=== PATIENT | male | born 1980 | race Caucasian/White ===

== ENCOUNTER 2020-10-16 20:37 | Emergency (ER) | payer BC, OTHER ==
[2020-10-16 21:26] LABS: Protime INR 0.97
--- NOTE | 2020-10-16 21:31 | RAD REPORT ---
EXAM DESCRIPTION: RAD - Chest Single View - 10/16/2020 9:21 pm CLINICAL HISTORY: Dizziness Chest pain. COMPARISON: No comparisons FINDINGS: Portable technique limits examination quality. The lungs are grossly clear. The heart is normal in size. No displaced fractures. IMPRESSION: No acute intrathoracic process suspected.
[2020-10-16 21:47] LABS: Absolute Lymphocytes (CBC) 2.2 K/uL (0.7-4.9); Basophils % 0.3 % (0-1.3); Hematocrit 43.4 % (39.6-49.0); Lymphocytes % 46.2 % (15.3-44.8); MPV 9.1 fL (7.6-11.3)
[2020-10-16 21:49] LABS: ALT/SGPT 42 U/L (12-78); AST/SGOT 20 U/L (15-37); Albumin 3.7 g/dL (3.4-5.0); Alkaline Phosphatase 83 U/L (45-117); BUN Blood Urea Nitrogen 15 mg/dL (7-18); Bicarbonate 28 mmol/L (21-32); Bilirubin Direct 0.1 mg/dL (0-0.2); Bilirubin Total 0.3 mg/dL (0.2-1.0); Glucose Level 107 mg/dL (74-106); Magnesium 2.3 mg/dL (1.8-2.4); NT PRO-BNP 21 pg/mL (<125); Potassium 3.4 mmol/L (3.5-5.1); Protein, Total 7.5 g/dL (6.4-8.2); Sodium Level 144 mmol/L (136-145); Troponin (Emerg Dept Use Only) < 0.02 ng/mL (0.0-0.045)
[2020-10-16 22:01] LABS: Urine Blood TRACE (NEG); Urine Glucose NEGATIVE (NEG); Urine Protein NEGATIVE (NEG); Urine Specific Gravity 1.025 (1.005-1.030); Urine pH 6.5 (5.0-7.0)
[2020-10-16 22:25] LABS: Barbiturates NEGATIVE (NEGATIVE); Benzodiazepines NEGATIVE (NEGATIVE); Cocaine NEGATIVE (NEGATIVE); METHAMPHETAM NEGATIVE (NEGATIVE); Methadone NEGATIVE (NEGATIVE); Opiates NEGATIVE (NEGATIVE); Phencyclidine NEGATIVE (NEGATIVE); THC Cannibis NEGATIVE (NEGATIVE)
[2020-10-16] MEDS ORDERED: MECLIZINE HCL 12.5 MG TAB ONE (23:34)
--- NOTE | 2020-10-16 23:43 | ER ---
Nurse's Notes [facility] [place] Name: Eduardo Parks Age: 40 yrs Sex: Male : 1980 Arrival Date: 10/16/2020 Time: 20:40 Bed 18 Private MD: Diagnosis: Vertigo Presentation: 10/16 20:45 Acuity: PADMA 3 sg 20:45 Chief complaint: Patient states: Reports positive covid, 14 days ago, states having sg dizziness today, states is on augmentin for upper resp infection and sinus infection. Coronavirus screen: Client denies travel out of the [place] in the last 14 days. At this time, the client does not indicate any symptoms associated with coronavirus-19. Ebola Screen: Patient negative for fever greater than or equal to 101.5 degrees Fahrenheit, and additional compatible Ebola Virus Disease symptoms Patient denies exposure to infectious person. Patient denies travel to an Ebola-affected area in the 21 days before illness onset. No symptoms or risks identified at this time. Initial Sepsis Screen: Does the patient meet any 2 criteria? No. Patient's initial sepsis screen is negative. Does the patient have a suspected source of infection? Yes: Productive cough/pneumonia. Risk Assessment: Do you want to hurt yourself or someone else? Patient reports no desire to harm self or others. Onset of symptoms was October 16, 2020. Care prior to arrival: None. Transition of care: patient was not received from another setting of care. 20:45 Method Of Arrival: Ambulatory sg Historical: - Allergies: 20:58 No Known Allergies; sg - Home Meds: 20:58 BP Medication [Active]; sg - PMHx: 20:58 Hypertension; sg - Immunization history:: Adult Immunizations up to date. - Social history:: Smoking status: Patient denies any tobacco usage or history of. Screenin:47 Abuse screen: Denies threats or abuse. Denies injuries from another. Nutritional lp1 screening: No deficits noted. Tuberculosis screening: No symptoms or risk factors identified. Fall Risk None identified. Assessment: 21:40 General: Appears in no apparent distress. Behavior is calm, cooperative, appropriate lp1 for age. Pain: Complains of pain in chest Pain currently is 0 out of 10 on a pain scale. Quality of pain is described as pressure, Pain began gradually, Is intermittent. Neuro: Level of Consciousness is awake, alert, obeys commands, Oriented to person, place, time, situation, Reports dizziness, intermittent, on exertion. Cardiovascular: Denies chest pain, Patient's skin is warm and dry. Rhythm is sinus rhythm. Respiratory: Airway is patent Respiratory effort is even, unlabored, Respiratory pattern is regular, Breath sounds are clear bilaterally. GI: Abdomen is non-distended. : No signs and/or symptoms were reported regarding the genitourinary system. EENT: No signs and/or symptoms were reported regarding the EENT system. Derm: Skin is intact, Skin is dry, Skin is normal. Musculoskeletal: No deficits noted. 22:15 Reassessment: Patient is alert, oriented x 3, equal unlabored respirations, skin lp1 warm/dry/pink. Patient returned from CT, no apparent distress. 23:36 Reassessment: Dr. Rinaldi at bedside to discuss results with patient and . lp1 23:44 Reassessment: Patient appears in no apparent distress at this time. Patient is alert, lp1 oriented x 3, equal unlabored respirations, skin warm/dry/pink. Patient states feeling better. Patient states symptoms have improved. Reassessment: Patient ambulating around [place], no complaint of dizziness. General: Appears in no apparent distress. Behavior is calm. Vital Signs: 20:45 Pulse 87; Resp 16; Pulse Ox 99% on R/A; Weight 136.98 kg (R); Height 6 ft. 3 in. sg (190.50 cm); Pain 4/10; 21:00 BP 144 / 87; Pulse 89; Resp 18; Pulse Ox 98% ; lp1 22:00 BP 133 / 77; Pulse 72; Resp 17; Pulse Ox 97% on R/A; lp1 23:00 Temp 98.6(O); lp1 23:50 BP 128 / 79; Pulse 62; Resp 17; Pulse Ox 99% on R/A; Pain 0/10; lp1 20:45 Body Mass Index 37.75 (136.98 kg, 190.50 cm) ED Course: 20:40 Patient arrived in ED. bp1 20:45 Triage completed. sg 20:45 Arm band placed on. sg 20:46 Armando Rinaldi MD is Attending Physician. [facility] 20:54 Lola Arias, RN is Primary Nurse. lp1 21:10 Initial lab(s) drawn, by me, sent to lab. Inserted saline lock: 20 gauge in right ca1 antecubital area, using aseptic technique. Blood collected. 21:22 XRAY Chest (1 view) In Process Unspecified. EDMS 21:47 Patient has correct armband on for positive identification. Bed in low position. Call lp1 light in reach. school bus monitor on. Pulse ox on. NIBP on. 22:22 CT Head Brain wo Cont In Process Unspecified. EDMS 23:42 Meghna Frederick MD is Referral Physician. [facility] 23:44 No provider procedures requiring assistance completed. IV discontinued, No lp1 redness/swelling at site. Pressure dressing applied. Administered Medications: 23:20 Drug: Meclizine 25 mg Route: PO; lp1 23:50 Follow up: Response: No adverse reaction lp1 Outcome: 23:42 Discharge ordered by . 7 23:55 Discharged to home ambulatory, with significant other. lp1 23:55 Condition: good 23:55 Discharge instructions given to patient, Instructed on discharge instructions, follow up and referral plans. medication usage, Demonstrated understanding of instructions, follow-up care, medications, Prescriptions given X 1. 10/17 00:10 Patient left the ED. sg Signatures: Dispatcher [employer] EDIL Zeus Kate RN RN Lola Arias, RN RN 1 Kellie Sigala RN RN [facility] Katelyn Wise Maurice, MD MD 7 Corrections: (The following items were deleted from the chart) 10/16 22:09 22:08 BP 133 / 77; Pulse 72bpm; Resp 17bpm; Pulse Ox 97% RA; lp1 lp1
--- NOTE | 2020-10-16 23:43 | EDPHYS ---
Physician Documentation [facility] Name: Eduardo Parks Age: 40 yrs Sex: Male : 1980 Arrival Date: 10/16/2020 Time: 20:40 Bed 18 Private MD: ED Physician Armando Rinaldi HPI: 10/16 21:05 This 40 yrs old Male presents to ER via Ambulatory with complaints of mh7 Dizziness, Sweating, Anxiety. 21:05 The patient presents with dizziness, sense of spinning. Onset: The symptoms/episode mh7 began/occurred today. Context: occurred at home, occurred while the patient was standing, just prior to the episode the patient experienced diaphoresis, nausea. Modifying factors: The symptoms are alleviated by holding head still, the symptoms are aggravated by movement of head, changing position. Associated signs and symptoms: Pertinent positives: diaphoresis, nausea, Pertinent negatives: abdominal pain, agitation, ataxia, blurred vision, chest pain, combativeness, confusion, focal weakness, head injury, headache, near-syncope, numbness, palpitations, seizure, shortness of breath, syncope, tingling, vomiting. Severity of symptoms: At their worst the symptoms were moderate today, in the emergency department the symptoms have improved moderately. The patient has experienced similar episodes in the past, multiple times. Historical: - Allergies: 20:58 No Known Allergies; sg - Home Meds: 20:58 BP Medication [Active]; sg - PMHx: 20:58 Hypertension; sg - Immunization history:: Adult Immunizations up to date. - Social history:: Smoking status: Patient denies any tobacco usage or history of. ROS: 21:05 Constitutional: Negative for fever, chills, and weight loss, Eyes: Negative for injury, mh7 pain, redness, and discharge, ENT: Negative for injury, pain, and discharge, Neck: Negative for injury, pain, and swelling, Cardiovascular: Negative for chest pain, palpitations, and edema, Respiratory: Negative for shortness of breath, cough, wheezing, and pleuritic chest pain, Abdomen/GI: Negative for abdominal pain, nausea, vomiting, diarrhea, and constipation, Back: Negative for injury and pain, : Negative for injury, bleeding, discharge, and swelling, MS/Extremity: Negative for injury and deformity, Skin: Negative for injury, rash, and discoloration. 21:05 Neuro: Negative for headache, weakness, numbness, tingling, and seizure. 21:05 Allergy/Immunology: Negative for hives, rash, and allergies, Endocrine: Negative for neck swelling, polydipsia, polyuria, polyphagia, and marked weight changes, Hematologic/Lymphatic: Negative for swollen nodes, abnormal bleeding, and unusual bruising. 21:05 Neuro: 21:05 Psych: Positive for anxiety. Exam: 21:05 Head/Face: Normocephalic, atraumatic. Eyes: Pupils equal round and reactive to light, mh7 extra-ocular motions intact. Lids and lashes normal. Conjunctiva and sclera are non-icteric and not injected. Cornea within normal limits. Periorbital areas with no swelling, redness, or edema. Neck: Trachea midline, no thyromegaly or masses palpated, and no cervical lymphadenopathy. Supple, full range of motion without nuchal rigidity, or vertebral point tenderness. No Meningismus. Chest/axilla: Normal chest wall appearance and motion. Nontender with no deformity. No lesions are appreciated. Cardiovascular: Regular rate and rhythm with a normal S1 and S2. No gallops, murmurs, or rubs. Normal PMI, no JVD. No pulse deficits. Respiratory: Lungs have equal breath sounds bilaterally, clear to auscultation and percussion. No rales, rhonchi or wheezes noted. No increased work of breathing, no retractions or nasal flaring. Abdomen/GI: Soft, non-tender, with normal bowel sounds. No distension or tympany. No guarding or rebound. No evidence of tenderness throughout. Back: No spinal tenderness. No costovertebral tenderness. Full range of motion. Skin: Warm, dry with normal turgor. Normal color with no rashes, no lesions, and no evidence of cellulitis. MS/ Extremity: Pulses equal, no cyanosis. Neurovascular intact. Full, normal range of motion. Neuro: Awake and alert, GCS 15, oriented to person, place, time, and situation. Cranial nerves II-XII grossly intact. Motor strength 5/5 in all extremities. Sensory grossly intact. Cerebellar exam normal. Normal gait. Psych: Awake, alert, with orientation to person, place and time. Behavior, mood, and affect are within normal limits. 21:05 Constitutional: The patient appears in no acute distress, alert, awake, anxious. Vital Signs: 20:45 Pulse 87; Resp 16; Pulse Ox 99% on R/A; Weight 136.98 kg (R); Height 6 ft. 3 in. sg (190.50 cm); Pain 4/10; 21:00 BP 144 / 87; Pulse 89; Resp 18; Pulse Ox 98% ; lp1 22:00 BP 133 / 77; Pulse 72; Resp 17; Pulse Ox 97% on R/A; lp1 23:00 Temp 98.6(O); lp1 23:50 BP 128 / 79; Pulse 62; Resp 17; Pulse Ox 99% on R/A; Pain 0/10; lp1 20:45 Body Mass Index 37.75 (136.98 kg, 190.50 cm) sg MDM: 23:40 Differential diagnosis: cardiac arrhythmia, generalized weakness, hypovolemia, mh7 idiopathic dizziness, near-syncope, vertigo. Data reviewed: vital signs, nurses notes, lab test result(s), cardiac enzymes, CBC, drug level(s), electrolytes, urinalysis, EKG, radiologic studies, CT scan, plain films. Data interpreted: Pulse oximetry: on room air is 97 %. Interpretation: normal. Counseling: I had a detailed discussion with the patient and/or guardian regarding: the historical points, exam findings, and any diagnostic results supporting the discharge/admit diagnosis, lab results, radiology results, the need for outpatient follow up, to return to the emergency department if symptoms worsen or persist or if there are any questions or concerns that arise at home. Response to treatment: the patient's symptoms have resolved after treatment, the patient's blood pressure is in an acceptable range, mental status has returned to baseline, the patient no longer shows bradycardia, the patient is not short of breath, the patient is not tachycardic, the patient's pain is gone, the patient's temperature has normalized. 23:42 Patient medically screened. [facility] 10/16 21:04 Order name: Basic Metabolic Panel [facility] 10/16 21:04 Order name: CBC with Diff; Complete Time: 22:05 [facility] 10/16 21:04 Order name: LFT's [facility] 10/16 21:04 Order name: Magnesium [facility] 10/16 21:04 Order name: NT PRO-BNP; Complete Time: 22:05 [facility] 10/16 21:04 Order name: PT-INR; Complete Time: 22:05 [facility] 10/16 21:04 Order name: Troponin (emerg Dept Use Only); Complete Time: 22:05 [facility] 10/16 21:04 Order name: XRAY Chest (1 view); Complete Time: 22:05 [facility] 10/16 21:04 Order name: UDS; Complete Time: 22:27 [facility] 10/16 21:04 Order name: ETOH Level; Complete Time: 22:05 [facility] 10/16 21:04 Order name: Basic Metabolic Panel; Complete Time: 22:05 [facility] 10/16 21:04 Order name: Liver (Hepatic) Function; Complete Time: 22:05 [facility] 10/16 21:04 Order name: Magnesium; Complete Time: 22:05 [facility] 10/16 21:57 Order name: Urine Dipstick--Ancillary (enter results); Complete Time: 22:05 [facility] 10/16 21:04 Order name: EKG; Complete Time: 21:05 [facility] 10/16 21:04 Order name: Cardiac monitoring; Complete Time: 21:46 [facility] 10/16 21:04 Order name: EKG - Nurse/Tech; Complete Time: 21:46 [facility] 10/16 21:04 Order name: IV Saline Lock; Complete Time: 21:19 [facility] 10/16 21:04 Order name: Labs collected and sent; Complete Time: 21:19 [facility] 10/16 21:04 Order name: O2 Per Protocol; Complete Time: 21:19 [facility] 10/16 21:04 Order name: O2 Sat Monitoring; Complete Time: 21:19 [facility] 10/16 21:04 Order name: Urine Dipstick-Ancillary (obtain specimen); Complete Time: 21:56 [facility] 10/16 21:04 Order name: CT Head Brain wo Cont 7 Administered Medications: 23:20 Drug: Meclizine 25 mg Route: PO; lp1 23:50 Follow up: Response: No adverse reaction lp1 Disposition: 10/16/20 23:42 Discharged to Home. Impression: Vertigo. - Condition is Stable. - Discharge Instructions: Vertigo, [id number]. - Prescriptions for Meclizine 25 mg Oral Tablet - take 1 tablet by ORAL route every 8 hours As needed; 20 tablet. - Medication Reconciliation Form, Thank You Letter, Antibiotic Education, Prescription Opioid Use form. - Follow up: Private Physician; When: 1 - 2 days; Reason: If symptoms return, Worsening of condition, Recheck today's complaints, Continuance of care, Re-evaluation by your physician. Follow up: Meghna Frederick MD; When: 1 - 2 days; Reason: Worsening of condition, Recheck today's complaints. - Problem is an acute exacerbation. - Symptoms have improved. Signatures: Dispatcher [employer] EDMS Zeus Kate RN RN sg Lola Arias RN RN lp1 Armando Rinaldi MD MD mh7 Corrections: (The following items were deleted from the chart) 10/17 00:10 10/16 23:42 10/16/2020 23:42 Discharged to Home. Impression: Vertigo. Condition is sg Stable. Forms are Medication Reconciliation Form, Thank You Letter, Antibiotic Education, Prescription Opioid Use. Follow up: Private Physician; When: 1 - 2 days; Reason: If symptoms return, Worsening of condition, Recheck today's complaints, Continuance of care, Re-evaluation by your physician. Follow up: Meghna Frederick; When: 1 - 2 days; Reason: Worsening of condition, Recheck today's complaints. Problem is an acute exacerbation. Symptoms have improved. mh7
[2020-10-17 04:04] VITALS: BP 133/77; O2SAT 97
[2020-10-17 04:05] VITALS: TEMP 98.6
--- NOTE | 2020-10-18 10:41 | RAD REPORT ---
EXAM DESCRIPTION: CT - Head Brain Wo Cont - 10/17/2020 4:02 am CLINICAL HISTORY: 40 years Male DIZZINESS COMPARISON: None TECHNIQUE: Contiguous axial images of the brain were obtained without the administration of intraven ous contrast.This exam was performed according to our departmental dose-optimization program which in cludes use of Automated Exposure Control, adjustment of the mA and/or kV according to patient size an d/or use of iterative reconstruction technique. DLP: 906 mGy*cm FINDINGS: Brain: No acute intracranial hemorrhage. No extra-axial collection. No mass effect or sydni iation. Ventricles: Within normal limits in size. Globes and orbits: No acute abnormality. Bones: No acute osseous finding Paranasal sinuses: Nodular maxillary an ethmoid mucosal thickening. No air-fluid level. Mastoid air cells: Well pneumatized. Soft tissues: Within normal limits IMPRESSION: No acute intracranial abnormality. Electronically signed by: Neal Myers DO 10/16/2020 10:32 PM [employer] Due to temporary technical issues with the PACS/Fluency reporting system, reports are being signed by the in house radiologist without review as a courtesy to ensure prompt reporting. The interpreting r adiologist is fully responsible for the content of the report.
== END 2020-10-17 00:10 | disposition home or self-care (01) ==
LOC: ER 20:37
DX: R42 Dizziness and giddiness (principal); I10 Essential (primary) hypertension; Z86.19 Personal history of other infectious and parasitic diseases
CPT/HCPCS: 36415; 70450; 71045; 80048; 80076; 80307; 80320; 81003; 83735; 83880; 84484; 85025; 85610; 93005; 99284

== ENCOUNTER 2023-12-25 07:48 | Observation (INO) | payer OTHER, SELFPAY ==
[2023-12-25] MEDS ORDERED: MAGNESIUM SULFATE 1 gm IVPB 1 GM/100 ML BAG IV ONE (07:56)
[2023-12-25] MEDS ORDERED: NA CHLORIDE 0.9% 1,000 ML ONE (07:56)
[2023-12-25] MEDS ORDERED: ASPIRIN 81 MG CHEWABLE TABLET ONE (07:56)
[2023-12-25] MEDS: METOPROLOL XL 25 MG TAB PO ONE (07:58)
[2023-12-25] MEDS ORDERED: METOPROLOL TARTRATE 5 MG/5 ML INJ IV ONE (08:15)
[2023-12-25] MEDS ORDERED: ENOXAPARIN 100 MG/ML SYR SQ ONE (08:15)
[2023-12-25 08:19] LABS: Absolute Lymphocytes (CBC) 2.8 K/uL (0.7-4.9); Hematocrit 44.3 % (39.6-49.0); Lymphocytes % 44.6 % (15.3-44.8); MPV 8.4 fL (7.6-11.3); Platelets 240 thou/uL (152-406); RBC Red Blood Cell Count 4.87 M/uL (4.33-5.43)
--- NOTE | 2023-12-25 08:25 | EDPHYS ---
Physician Documentation [facility] Name: Eduardo Parks Age: 43 yrs Sex: Male : 1980 Arrival Date: 12/25/2023 Time: 07:48 Bed 5 Private MD: Xander Day V ED Physician Min Adams HPI: 12/25 08:20 This 43 yrs old Male presents to ER via Ambulatory with complaints of elvia Palpitations. 08:20 The patient presents with a history of irregular heart beat, heart racing. Context: The elvia symptoms occur at rest. Onset: The symptoms/episode began/occurred just prior to arrival, this morning. Duration: The patient or guardian reports a single episode, that is still ongoing. Modifying factors: The symptoms are aggravated by nothing. The symptoms are alleviated by nothing. Associated signs and symptoms: Pertinent positives: chest pain, lightheadedness. Severity of symptoms: At their worst the symptoms were moderate in the emergency department the symptoms are unchanged. The patient has experienced similar episodes in the past, several times. Historical: - Allergies: 07:55 Bactrim; ll1 - PMHx: 07:55 Hypertension; ll1 - PSHx: 07:55 None; ll1 - Immunization history:: Adult Immunizations up to date. - Social history:: Smoking status: Patient reports use of chewing tobacco. Patient denies any tobacco usage or history of. - Family history:: not pertinent. ROS: 08:20 Constitutional: Negative for fever, chills, and weight loss, Eyes: Negative for injury, elvia pain, redness, and discharge, ENT: Negative for injury, pain, and discharge, Neck: Negative for injury, pain, and swelling, Respiratory: Negative for shortness of breath, cough, wheezing, and pleuritic chest pain, Abdomen/GI: Negative for abdominal pain, nausea, vomiting, diarrhea, and constipation, Back: Negative for injury and pain, : Negative for injury, bleeding, discharge, and swelling, MS/Extremity: Negative for injury and deformity, Skin: Negative for injury, rash, and discoloration, Neuro: Negative for headache, weakness, numbness, tingling, and seizure, Psych: Negative for depression, anxiety, suicide ideation, homicidal ideation, and hallucinations, Allergy/Immunology: Negative for hives, rash, and allergies, Endocrine: Negative for neck swelling, polydipsia, polyuria, polyphagia, and marked weight changes, Hematologic/Lymphatic: Negative for swollen nodes, abnormal bleeding, and unusual bruising, 08:20 Cardiovascular: Positive for chest pain, palpitations, Exam: 08:20 Constitutional: This is a well developed, well nourished patient who is awake, alert, elvia and in no acute distress. Head/Face: Normocephalic, atraumatic. Eyes: Pupils equal round and reactive to light, extra-ocular motions intact. Lids and lashes normal. Conjunctiva and sclera are non-icteric and not injected. Cornea within normal limits. Periorbital areas with no swelling, redness, or edema. ENT: Nares patent. No nasal discharge, no septal abnormalities noted. Tympanic membranes are normal and external auditory canals are clear. Oropharynx with no redness, swelling, or masses, exudates, or evidence of obstruction, uvula midline. Mucous membranes moist. Neck: Trachea midline, no thyromegaly or masses palpated, and no cervical lymphadenopathy. Supple, full range of motion without nuchal rigidity, or vertebral point tenderness. No Meningismus. Chest/axilla: Normal chest wall appearance and motion. Nontender with no deformity. No lesions are appreciated. Respiratory: Lungs have equal breath sounds bilaterally, clear to auscultation and percussion. No rales, rhonchi or wheezes noted. No increased work of breathing, no retractions or nasal flaring. Abdomen/GI: Soft, non-tender, with normal bowel sounds. No distension or tympany. No guarding or rebound. No evidence of tenderness throughout. Back: No spinal tenderness. No costovertebral tenderness. Full range of motion. Male : Normal genitalia with no discharge or lesions. Skin: Warm, dry with normal turgor. Normal color with no rashes, no lesions, and no evidence of cellulitis. MS/ Extremity: Pulses equal, no cyanosis. Neurovascular intact. Full, normal range of motion. Neuro: Awake and alert, GCS 15, oriented to person, place, time, and situation. Cranial nerves II-XII grossly intact. Motor strength 5/5 in all extremities. Sensory grossly intact. Cerebellar exam normal. Normal gait. Psych: Awake, alert, with orientation to person, place and time. Behavior, mood, and affect are within normal limits. 08:20 Cardiovascular: Rate: tachycardic, actual rate is 140 bpm, Rhythm: regular, Pulses: no pulse deficits are appreciated, Heart sounds: normal, Edema: is not appreciated, JVD: is not appreciated, 08:20 ECG was reviewed by the Attending Physician. Vital Signs: 07:56 BP 161 / 100; Pulse 104; Resp 18; Temp 97.4(TE); Pulse Ox 98% on R/A; Weight 140.61 kg; ll1 Height 6 ft. 3 in. ; Pain 2/10; 08:09 BP 142 / 92; Pulse 140; Resp 18; Pulse Ox 99% on R/A; rs5 08:27 BP 136 / 99; Pulse 98; Resp 18; Pulse Ox 99% on R/A; ph 08:55 BP 125 / 91; Pulse 87; Resp 18; Pulse Ox 99% on R/A; ph 10:42 BP 115 / 75; Pulse 78; Resp 18; Temp 97.8; Pulse Ox 98% on R/A; ph 07:56 Body Mass Index 38.75 (140.61 kg, 190.5 cm) ll1 07:56 Pain Scale: Adult ll1 MDM: 07:51 Patient medically screened. [facility] 08:24 Data reviewed: vital signs, nurses notes, lab test result(s), EKG, radiologic studies, [facility] CT scan, plain films. 12/25 07:52 Order name: Basic Metabolic Panel; Complete Time: 09:19 [facility] 12/25 07:52 Order name: CBC with Diff; Complete Time: 09:19 [facility] 12/25 07:52 Order name: LFT's; Complete Time: 09:19 [facility] 12/25 07:52 Order name: Magnesium; Complete Time: 09:19 [facility] 12/25 07:52 Order name: NT PRO-BNP; Complete Time: 09:19 [facility] 12/25 07:52 Order name: PT-INR; Complete Time: 09:19 elvia 12/25 07:52 Order name: Troponin HS; Complete Time: 09:19 [facility] 12/25 07:52 Order name: TSH; Complete Time: 09:19 [facility] 12/25 07:52 Order name: Urinalysis w/ reflexes elvia 12/25 07:52 Order name: XRAY Chest (1 view); Complete Time: 09:19 [facility] 12/25 08:11 Order name: Echo w/ Doppler [facility] 12/25 07:52 Order name: EKG; Complete Time: 07:52 [facility] 12/25 08:39 Order name: CONS Physician Consult EDKY 12/25 07:52 Order name: Cardiac monitoring; Complete Time: 08:03 [facility] 12/25 07:52 Order name: EKG - Nurse/Tech; Complete Time: 08:03 [facility] 12/25 07:52 Order name: IV Saline Lock; Complete Time: 08:27 [facility] 12/25 07:52 Order name: Labs collected and sent; Complete Time: 07:58 [facility] 12/25 07:52 Order name: O2 Per Protocol; Complete Time: 07:58 [facility] 12/25 07:52 Order name: O2 Sat Monitoring; Complete Time: 07:58 [facility] EC:20 Rate is 140 beats/min. Rhythm is irregularly irregular. QRS [place] is Normal. OR interval elvia is normal. QRS interval is normal. QT interval is normal. No Q waves. T waves are Normal. No ST changes noted. Clinical impression: Atrial Fibrillation and No evidence of ischemia. Interpreted by me. Reviewed by me. Administered Medications: 08:03 Drug: Aspirin PO Chewable Tablet 162 mg PO once Route: PO; rs5 09:00 Follow up: Response: No adverse reaction ph 08:03 Drug: Metoprolol PO 25 mg PO once Route: PO; rs5 09:00 Follow up: Response: No adverse reaction ph 08:10 Drug: Magnesium Sulfate IVPB 1 grams IVPB once over 1 hrs Route: IVPB; Infused Over: 1 ph hrs; Site: right antecubital; 09:15 Follow up: Response: No adverse reaction; IV Status: Completed infusion ph 08:10 Drug: NS 0.9% IV 1000 ml IV at 1 bolus Per protocol; 1000 mL bolus Route: IV; Rate: 1 ph bolus; Site: right antecubital; 09:30 Follow up: Response: No adverse reaction; IV Status: Completed infusion ph 08:18 Drug: Metoprolol IVP 5 mg IVP once; Hold for SBP <100 or HR <60. Route: IVP; Site: ph right antecubital; 09:00 Follow up: Response: No adverse reaction ph 08:20 Drug: Enoxaparin Sub-Q 100 mg Sub-Q once Route: Sub-Q; Site: right lower abdomen; ph 10:00 Follow up: Response: No adverse reaction ph 08:37 Drug: Metoprolol IVP 5 mg IVP once; Hold for SBP <100 or HR <60. Route: IVP; Site: ph right antecubital; 09:00 Follow up: Response: No adverse reaction ph 09:43 Drug: Potassium PO Effervescent Tablet 50 mEq PO once; dissolve in 4 ounces of water or ll1 juice Route: PO; 10:00 Follow up: Response: No adverse reaction ph 09:43 Drug: NS 0.9% with KCl IV 20 mEq/L 1000 ml IV at 125 ml/hr continuous Route: IV; Rate: ll1 125 ml/hr; Site: right antecubital; 10:00 Follow up: Response: No adverse reaction; IV Status: Infusion continued upon admission ph 09:44 Drug: Potassium Chloride IV 20 mEq IV at per protocol once; administer over 1-2 hours ll1 Route: IV; Rate: per protocol; Site: right antecubital; 10:00 Follow up: IV Status: Infusion continued upon admission ph 09:51 Drug: Digoxin IVP 0.5 mg IVP once Route: IVP; Site: right antecubital; ph 10:00 Follow up: Response: No adverse reaction ph 11:13 Not Given (Other Intervention Used): metoprolol5 mg IVP once; Hold for SBP <100 or HR ph <60. 11:13 Not Given (Other Intervention Used): potassiumeffervescent tablet 50 meq PO once; ph dissolve in 4 ounces of water or juice 19:25 Not Given (Other Intervention Used): [id number] mg PO once ph Disposition Summary: 12/25/23 08:25 Hospitalization Ordered Notes: Hospitalization Status: Observation elvia Provider: Xander Day cha Location: Telemetry/MedSurg (observation) elvia Condition: Fair elvia Problem: new elvia Symptoms: have improved elvia Bed/Room Type: Standard elvia Room Assignment: 228(12/25/23 10:40) bd Diagnosis - Palpitations elvia - Persistent atrial fibrillation elvia - Chest pain, unspecified elvia - Hypokalemia elvia Forms: - Medication Reconciliation Form elvia - SBAR form elvia - Leadership Thank You Letter elvia Signatures: Dispatcher [employer] Holli Dunham Corey, MD MD cha Hall, Patricia, RN RN ph Leidy Vu RN RN ll1 Armani Cano RN RN rs5 Corrections: (The following items were deleted from the chart) :16 08:25 elvia bd 10:25 10:16 228 bd bd 10:40 10:25 bd bd
--- NOTE | 2023-12-25 08:25 | ER ---
Nurse's Notes [facility] Name: Eduardo Parks Age: 43 yrs Sex: Male : 1980 Arrival Date: 12/25/2023 Time: 07:48 Bed 5 Private MD: Xander Day V Diagnosis: Palpitations;Persistent atrial fibrillation;Chest pain, unspecified;Hypokalemia Presentation: 12/25 07:56 Chief complaint: Patient states: Awoke with palpitations, CP. Watch reads HR 130-170's. ll1 Coronavirus screen: Client denies travel out of the [place] in the last 14 days. At this time, the client does not indicate any symptoms associated with coronavirus-19. Ebola Screen: Patient denies travel to an Ebola-affected area in the 21 days before illness onset. Initial Sepsis Screen: Does the patient meet any 2 criteria? No. Patient's initial sepsis screen is negative. Does the patient have a suspected source of infection? No. Patient's initial sepsis screen is negative. Risk Assessment: Do you want to hurt yourself or someone else? Patient reports no desire to harm self or others. Onset of symptoms was December 25, 2023. 07:56 Method Of Arrival: Ambulatory ll1 07:56 Acuity: PADMA 3 ll1 Triage Assessment: 07:58 General: Appears uncomfortable, Behavior is calm, cooperative, appropriate for age. ll1 Pain: Complains of pain in chest Pain currently is 2 out of 10 on a pain scale. Quality of pain is described as pressure, Pain began 3 hours ago. Cardiovascular: Reports chest pain, palpitations, shortness of breath. Historical: - Allergies: 07:55 Bactrim; ll1 - PMHx: 07:55 Hypertension; ll1 - PSHx: 07:55 None; ll1 - Immunization history:: Adult Immunizations up to date. - Social history:: Smoking status: Patient reports use of chewing tobacco. Patient denies any tobacco usage or history of. - Family history:: not pertinent. Screenin:57 [facility] ED Fall Risk Assessment (Adult) History of falling in the last 3 months, ph including since admission No falls in past 3 months (0 pts) Score/Fall Risk Level 0 - 2 = Low Risk Oriented to surroundings, Maintained a safe environment, Hourly rounding (assess needs \T\ fall precautionary measures) done, Used ambulatory aids as needed (educated on \T\ assisted with). Abuse screen: Denies threats or abuse. Denies injuries from another. Nutritional screening: No deficits noted. Tuberculosis screening: No symptoms or risk factors identified. Assessment: 08:00 General: Appears in no apparent distress. uncomfortable, Behavior is calm, cooperative. rs5 Pain: Denies pain. Neuro: Level of Consciousness is awake, alert, obeys commands, Oriented to person, place, time, situation. Cardiovascular: Rhythm is sinus tachycardia. 08:00 Respiratory: Airway is patent Respiratory effort is even, unlabored, Respiratory rs5 pattern is regular, symmetrical, Breath sounds are clear bilaterally. GI: Abdomen is round non-distended, Bowel sounds present X 4 quads. Abd is soft and non tender X 4 quads. Patient currently denies nausea. : No signs and/or symptoms were reported regarding the genitourinary system. EENT: No signs and/or symptoms were reported regarding the EENT system. Derm: Skin is intact, Skin is pink, warm \T\ dry. Musculoskeletal: Range of motion: intact in all extremities. 08:10 Reassessment: Provider notified of pt's latest vitals. rs5 Vital Signs: 07:56 BP 161 / 100; Pulse 104; Resp 18; Temp 97.4(TE); Pulse Ox 98% on R/A; Weight 140.61 kg; ll1 Height 6 ft. 3 in. ; Pain 2/10; 08:09 BP 142 / 92; Pulse 140; Resp 18; Pulse Ox 99% on R/A; rs5 08:27 BP 136 / 99; Pulse 98; Resp 18; Pulse Ox 99% on R/A; ph 08:55 BP 125 / 91; Pulse 87; Resp 18; Pulse Ox 99% on R/A; ph 10:42 BP 115 / 75; Pulse 78; Resp 18; Temp 97.8; Pulse Ox 98% on R/A; ph 07:56 Body Mass Index 38.75 (140.61 kg, 190.5 cm) ll1 07:56 Pain Scale: Adult ll1 ED Course: 07:49 Patient arrived in ED. rg4 07:49 Xander Day MD is Private Physician. rg4 07:51 Min Adams MD is Attending Physician. elvia 07:53 Allison Baez, RN is Primary Nurse. ph 07:55 Arm band placed on Patient placed in an exam room, on a stretcher. ll1 07:57 Triage completed. ll1 07:57 Patient has correct armband on for positive identification. Placed in gown. Bed in low ph position. Call light in reach. Side rails up X 1. Client placed on continuous cardiac and pulse oximetry monitoring. NIBP monitoring applied. Door closed. Noise minimized. 08:09 No provider procedures requiring assistance completed. rs5 08:10 Initial lab(s) drawn, by sd, sent to lab. Inserted saline lock: 20 gauge in right ph antecubital area, using aseptic technique. Blood collected. 08:20 XRAY Chest (1 view) In Process Unspecified. EDMS 08:24 Xander Day MD is Hospitalizing Provider. elvia 11:01 Patient admitted, IV remains in place. ph Administered Medications: 08:03 Drug: Aspirin PO Chewable Tablet 162 mg PO once Route: PO; rs5 09:00 Follow up: Response: No adverse reaction ph 08:03 Drug: Metoprolol PO 25 mg PO once Route: PO; rs5 09:00 Follow up: Response: No adverse reaction ph 08:10 Drug: Magnesium Sulfate IVPB 1 grams IVPB once over 1 hrs Route: IVPB; Infused Over: 1 ph hrs; Site: right antecubital; 09:15 Follow up: Response: No adverse reaction; IV Status: Completed infusion ph 08:10 Drug: NS 0.9% IV 1000 ml IV at 1 bolus Per protocol; 1000 mL bolus Route: IV; Rate: 1 ph bolus; Site: right antecubital; 09:30 Follow up: Response: No adverse reaction; IV Status: Completed infusion ph 08:18 Drug: Metoprolol IVP 5 mg IVP once; Hold for SBP <100 or HR <60. Route: IVP; Site: ph right antecubital; 09:00 Follow up: Response: No adverse reaction ph 08:20 Drug: Enoxaparin Sub-Q 100 mg Sub-Q once Route: Sub-Q; Site: right lower abdomen; ph 10:00 Follow up: Response: No adverse reaction ph 08:37 Drug: Metoprolol IVP 5 mg IVP once; Hold for SBP <100 or HR <60. Route: IVP; Site: ph right antecubital; 09:00 Follow up: Response: No adverse reaction ph 09:43 Drug: Potassium PO Effervescent Tablet 50 mEq PO once; dissolve in 4 ounces of water or ll1 juice Route: PO; 10:00 Follow up: Response: No adverse reaction ph 09:43 Drug: NS 0.9% with KCl IV 20 mEq/L 1000 ml IV at 125 ml/hr continuous Route: IV; Rate: ll1 125 ml/hr; Site: right antecubital; 10:00 Follow up: Response: No adverse reaction; IV Status: Infusion continued upon admission ph 09:44 Drug: Potassium Chloride IV 20 mEq IV at per protocol once; administer over 1-2 hours ll1 Route: IV; Rate: per protocol; Site: right antecubital; 10:00 Follow up: IV Status: Infusion continued upon admission ph 09:51 Drug: Digoxin IVP 0.5 mg IVP once Route: IVP; Site: right antecubital; ph 10:00 Follow up: Response: No adverse reaction ph 11:13 Not Given (Other Intervention Used): metoprolol5 mg IVP once; Hold for SBP <100 or HR ph <60. 11:13 Not Given (Other Intervention Used): potassiumeffervescent tablet 50 meq PO once; ph dissolve in 4 ounces of water or juice 19:25 Not Given (Other Intervention Used): [id number] mg PO once ph Medication: 07:58 VIS not applicable for this client. ph Outcome: 08:25 Decision to Hospitalize by Provider. [facility] 11:01 Admitted to Tele accompanied by tech, family with patient, via wheelchair, with chart, ph 11:01 Condition: stable 11:14 Patient left the ED. ph Signatures: Dispatcher [employer] EDMin Mims MD MD cha Hall, Patricia, RN RN ph Garcia, Rubi rg4 Leidy Vu RN RN ll1 Armani Cano RN RN rs5
--- NOTE | 2023-12-25 08:36 | RAD REPORT ---
EXAM DESCRIPTION: RADChest Single View12/25/2023 8:18 am CLINICAL HISTORY: PALPITATIONS COMPARISON: Chest Single View dated 10/16/2020 TECHNIQUE: Portable AP view of the chest. FINDINGS: The lungs are clear. No pneumothorax or effusion. The cardiomediastinal contours are unre markable. IMPRESSION: No acute cardiopulmonary process.
[2023-12-25 08:41] LABS: Protime INR 1.01
[2023-12-25 08:52] LABS: Albumin 3.6 g/dL (3.4-5.0); Bilirubin Direct 0.1 mg/dL (0-0.2); Bilirubin Indirect, Calculated 0.4 mg/dL (0.2-0.8); Bilirubin Total 0.5 mg/dL (0.2-1.0); Magnesium 2.1 mg/dL (1.6-2.4); Potassium 2.9 mEq/L (3.5-5.1); Protein, Total 7.3 g/dL (6.4-8.2); Thyroid Stimulating Hormone 1.46 uIU/mL (0.358-3.740); Troponin High Sensitivity 5.2 pg/mL (<58.9)
[2023-12-25] MEDS ORDERED: POTASSIUM 25 MEQ EFFERV TAB ONE (09:29)
[2023-12-25] MEDS ORDERED: KCL 20 MEQ/100 mL IVPB 100 ML IV ONE (09:30)
[2023-12-25] MEDS ORDERED: NS KCL 20MEQ 1,000 ML IV ONE (09:30)
[2023-12-25] MEDS ORDERED: DIGOXIN 0.25 MG/ML AMP ONE (09:45)
[2023-12-25 09:58] LABS: Specific Gravity < 1.005 (1.005-1.030); Urine Bacteria None Seen /HPF (<20); Urine Bilirubin NEGATIVE (Negative); Urine Blood Negative (Negative); Urine Clarity Clear (Clear); Urine Color Colorless (Yellow); Urine Glucose NEGATIVE (Negative); Urine Protein NEGATIVE (Negative); Urine RBC <5 /HPF (None Seen); Urine Urobilinogen Normal (Normal)
[2023-12-25] MEDS ORDERED: MORPHINE 2 MG/ML SYR IV PRN (10:40)
[2023-12-25] MEDS ORDERED: ONDANSETRON 4 MG/2 ML VIAL IV PRN (10:40)
[2023-12-25] MEDS: METOPROLOL TAR 50 MG TAB PO SCH (10:40)
[2023-12-25] MEDS ORDERED: ACETAMINOPHEN 325 MG TABLET PO PRN (10:40)
[2023-12-25] MEDS: ASPIRIN EC 81 MG TAB PO SCH (10:40)
[2023-12-25 11:38] VITALS: BMI 38.7
--- NOTE | 2023-12-25 12:54 | EKG ---
Test Date: 2023-12-25 Test Time: 08:01:18 Salesperson Women'S Dresses: DEREJE MEASUREMENT RESULTS: Intervals: Rate: 140 DC: QRSD: 106 QT: 322 QTc: 491 [place]: P: DC: QRS: 99 T: -14 INTERPRETIVE STATEMENTS: Atrial fibrillation with premature ventricular or aberrantly conducted complexes ST & T wave abnormality, consider inferior ischemia or digitalis effect Abnormal ECG Compared to ECG 10/16/2020 21:23:53 Ventricular premature complex(es) now present ST (T wave) deviation now present Possible ischemia now present Sinus rhythm no longer present Electronically Signed On 12-25-23 12:52:14 [employer] by Dileep Gonzales
--- NOTE | 2023-12-25 16:38 | CON ---
Date of Consultation: 12/25/2023 Reason For Consultation: Atrial fibrillation. History Of Present Illness: A 43-year-old male, history of hypertension, presented to the emergency room with palpitations with irregular heart rhythm. On evaluation found to be in atrial fibrillation with rapid ventricular rate. Denies having any chest pain or shortness of breath. Feels slightly d yolie. No other complaints. Past Medical History: Hypertension. Medications: Refer reconciliation sheet for detailed list. Allergies: BACTRIM. Social History: He does not drink or use any drugs. Family History: No premature coronary artery disease or cancer. Review of Systems: All systems reviewed, they were negative except mentioned in HPI. Physical Examination: Vital Signs: Reviewed. Head and Neck: Pupils are equal, reactive to light. Intact eye movements. No JVD. No cervical lym phadenopathy. Neck supple. Thyroid is not enlarged. Lungs: Clear to auscultation bilaterally. No rhonchi, rales, or crackles. No accessory muscle use. Heart: Irregularly irregular. No extra sounds. Abdomen: Soft, nontender. Bowel sounds positive. No organomegaly. No masses or hernia. No rigidi ty or rebound. Extremities: No clubbing, cyanosis. Intact pulses. Skin: No rash or nodule. Neurologic: Alert, awake, oriented x3. No acute focal deficits appreciated. Lymph Nodes: No cervical or axillary lymphadenopathy. Investigations: Cardiac enzymes are negative. BUN is 14, creatinine 1.11 and potassium is 2.9. Whi te blood cell count is 14.9. TSH 1.46. Assessment/recommendation: Atrial fibrillation with rapid ventricular response. Recommend just init iate sotalol during this hospital stay after correcting the potassium. Initiate 80 mg twice a day. Monitor on telemetry and EKG after third dose. Continue baby aspirin for anticoagulation. I will co ntinue metoprolol as well for the time being until he hopefully recovers sinus rhythm. SR/MODL Voice ID: [id number] Report ID: [id number]
[2023-12-25] MEDS ORDERED: LORAZEPAM 0.5 MG TABLET PO PRN (17:09)
[2023-12-25 17:22] LABS: Potassium 4.2 mEq/L (3.5-5.1)
[2023-12-25] MEDS: LORAZEPAM 0.5 MG TABLET PO PRN (17:23)
[2023-12-25] MEDS: SOTALOL HCL 80 MG TAB PO SCH (17:25)
[2023-12-25] MEDS: APIXABAN 5 MG TABLET PO SCH (20:44)
[2023-12-25] MEDS ORDERED: ENOXAPARIN 100 MG/ML SYR SQ SCH (21:00)
[2023-12-25] MEDS ORDERED: METOPROLOL TAR 50 MG TAB PO SCH (21:00)
[2023-12-25] MEDS: MELATONIN 5 MG TABLET PO ONE ×2 (22:53→23:20)
--- NOTE | 2023-12-26 04:21 | HP ---
Date of Admission: 12/25/2023 (I am doing this note on phone because [employer] is not working at this point). Chief Complaint: Mr. Parks has palpitations and has been diagnosed with atrial fibrillation in the emergency room. History Of Present Illness: The patient is 43 years old with severe anxiety and hypertension, with a history of palpitations, with multiple PACs in the past, who has been seen by Dr. Reid, and has b een on metoprolol since then in addition to anxiety medications, and controlled reasonably well until now he starts having rapid atrial fibrillation. For this, he has been given IV metoprolol from [facility] and now he is on the floor. Past Medical History: As described above, palpitations, PACs, PVCs, hypertension, and severe anxiety plus mild sleep apnea. Surgical History: None. Family History: Mother with colon cancer. Father had ALS. Social History: Nonsmoker. Does not consume alcohol. Physical Examination: General: The patient is stable, but very anxious. Vital Signs: Blood pressure has been 130/80. Heart rate was about 116, high; down to 82 with IV met oprolol. Chest: Clear. Heart: Regular; on admission, irregularly irregular. Abdomen: No guarding. No rebound. No rigidity. List Of Medications: At home, he is on Lexapro 10 mg once a day, lorazepam 0.5 mg p.o. at bedtime p. r.n., metoprolol ER 50 mg once a day. Investigations: CBC, chem-7, liver profile, and chest x-ray: Normal. EKG: Rapid atrial fibrillati on. Assessment/plan: Rapid atrial fibrillation. Change the medication to sotalol 80 mg p.o. b.i.d., Gris jorge 5 mg b.i.d. Stop Lovenox at this point. Dr. Gonzales will convert him to sinus rhythm if he is n ot able to do it himself with the use of sotalol, the conversion will be done on the day after tomorr ow, which is on . Prognosis fair. The patient is told that he needs to relax a little bit m ore because otherwise this adrenalin can make the atrial fibrillation worse. He is on Lexapro alread y. We will put him on lorazepam 0.5 mg p.o. b.i.d., and continue the higher dose at this point. JAIME/AHMET Voice ID: [id number]
[2023-12-26 07:11] LABS: Absolute Lymphocytes (CBC) 2.4 K/uL (0.7-4.9); Hematocrit 42.5 % (39.6-49.0); Lymphocytes % 41.4 % (15.3-44.8); MCV 91.5 fL (80-100); MPV 8.3 fL (7.6-11.3); Platelets 247 thou/uL (152-406); RBC Red Blood Cell Count 4.64 M/uL (4.33-5.43)
[2023-12-26 07:26] LABS: Potassium 4.1 mEq/L (3.5-5.1)
[2023-12-26] MEDS: ASPIRIN EC 81 MG TAB PO SCH (08:00)
[2023-12-26] MEDS: ESCITALOPRAM 20 MG TAB PO SCH (08:00)
[2023-12-26 11:30] VITALS: O2SAT 98
[2023-12-26 13:18] VITALS: BP 133/76; TEMP 98.6
--- NOTE | 2023-12-26 16:39 | EKG ---
Test Date: 2023-12-26 Test Time: 07:58:53 [employer] Gun Repairer Helper: BRIANNA MEASUREMENT RESULTS: Intervals: Rate: 48 MN: 154 QRSD: 110 QT: 430 QTc: 384 [place]: P: 39 MN: 154 QRS: 23 T: 27 INTERPRETIVE STATEMENTS: Marked sinus bradycardia Abnormal ECG Compared to ECG 12/25/2023 08:01:18 Atrial fibrillation no longer present Ventricular premature complex(es) no longer present ST (T wave) deviation no longer present Possible ischemia no longer present Electronically Signed On 12-26-23 16:38:14 [employer] FINISH[employer] by Esvin Melendez
--- NOTE | 2023-12-26 16:40 | EKG ---
Test Date: 2023-12-25 Test Time: 20:13:14 High Speed Operator: MEASUREMENT RESULTS: Intervals: Rate: 58 RI: 168 QRSD: 110 QT: 404 QTc: 396 Mcdaniel: P: 41 RI: 168 QRS: 63 T: -12 INTERPRETIVE STATEMENTS: Sinus bradycardia Abnormal QRS-T angle, consider primary T wave abnormality Abnormal ECG Compared to ECG 12/25/2023 08:01:18 T-wave abnormality now present Atrial fibrillation no longer present Ventricular premature complex(es) no longer present ST (T wave) deviation no longer present Possible ischemia no longer present Electronically Signed On 12-26-23 16:39:44 DIGITAL PHOTOGRAPHIC PRINTER by Esvin Melendez
--- NOTE | 2023-12-26 21:30 | P.DS ---
Admission Date: 12/25/23 Discharge Date: 12/26/23 Disposition: ROUTINE DISCHARGE Discharge Condition: [facility] Course: DAVID COMES WITH RAPID A FIB, SEVERE HYPOKALEMAI. I SUSPECT HE MAY HAVE HYPERALDOSERONISM. HE DID WLL WITH SOTALOL AND WLIQUIS . HE IS DISCHARGED ON ERICA SAME MEDS. I ADDED SP;IRONOLACTONE FOR LOW K PRODUCTION. Vital Signs/Physical Exam: Temp Pulse Resp BP Pulse Ox 98.6 F 54 16 133/76 98 12/26/23 12:00 12/26/23 12:00 12/26/23 12:00 12/26/23 12:00 12/26/23 12:00 Laboratory Data at Discharge: WBC 5.90 thou/uL (4.3-10.9) 12/26/23 06:56 Hgb 14.5 g/dL (13.6-17.9) 12/26/23 06:56 Hct 42.5 % (39.6-49.0) 12/26/23 06:56 Plt Count 247 thou/uL (152-406) 12/26/23 06:56 PT 11.1 SECONDS (9.5-12.5) 12/25/23 08:10 INR 1.01 12/25/23 08:10 Sodium 139 mEq/L (136-145) 12/26/23 06:56 Potassium 4.1 mEq/L (3.5-5.1) 12/26/23 06:56 BUN 13 mg/dL (7-18) 12/26/23 06:56 Creatinine 0.99 mg/dL (0.70-1.30) 12/26/23 06:56 Glucose 101 mg/dL (74-106) 12/26/23 06:56 Magnesium 2.1 mg/dL (1.6-2.4) 12/25/23 08:10 Total Bilirubin 0.5 mg/dL (0.2-1.0) 12/25/23 08:10 AST 17 U/L (15-37) 12/25/23 08:10 ALT 33 U/L (16-61) 12/25/23 08:10 Alkaline Phosphatase 80 U/L (45-117) 12/25/23 08:10 Home Medications: Escitalopram Oxalate 10 mg PO DAILY 12/25/23 LORazepam [Ativan*] 0.5 mg PO BEDTIME PRN 12/25/23 Apixaban [Eliquis] 5 mg PO BID #60 tablet 12/26/23 Sotalol HCl [Betapace*] 80 mg PO BID 6AM 6PM #60 tab 12/26/23 Spironolactone 25 mg PO DAILY #90 tab 12/26/23 New Medications: Sotalol HCl [Betapace*] 80 mg PO BID 6AM 6PM #60 tab Apixaban [Eliquis] 5 mg PO BID #60 tablet Spironolactone 25 mg PO DAILY #90 tab Followup: Xander Day MD [Primary Care Provider] - Dileep Gonzales MD [ACTIVE - CAN ADMIT] -
--- NOTE | 2023-12-27 10:58 | ECHO ---
HEIGHT: 6 ft 3 in WEIGHT: 309 lb 15.872 oz DATE OF STUDY: 12/26/[address]: Min Adams MD 2-DIMENSIONAL: YES M.MODE: YES DOPPLER: YES COLOR FLOW: YES TDS: YES PORTABLE: YES DEFINITY: BUBBLE STUDY: DIAGNOSIS: ATRIAL FIBRILLATION CARDIAC HISTORY: CATHERIZATION: NO SURGERY: NO PROSTHETIC VALVE: NO PACEMAKER: NO MEASUREMENTS (cm) DIASTOLIC (NORMALS) SYSTOLIC (NORMALS) IVSd 1.2 (0.6-1.2) LA Diam 3.2 (1.9-4.0) LVEF 55% LVIDd 5.7 (3.5-5.7) LVIDs 4.0 (2.0-3.5) %FS 29% LVPWd 1.2 (0.6-1.2) Ao Diam 3.2 (2.0-3.7) 2 DIMENSIONAL ASSESSMENT: RIGHT ATRIUM: NORMAL LEFT ATRIUM: NORMAL RIGHT VENTRICLE: NORMAL LEFT VENTRICLE: NORMAL TRICUSPID VALVE: TRACE TRICUSPID REGURGITATION MITRAL VALVE: NORMAL PULMONIC VALVE: NORMAL AORTIC VALVE: NORMAL PERICARDIAL EFFUSION: NONE AORTIC ROOT: NORMAL LEFT VENTRICULAR WALL MOTION: NORMAL WALL MOTION. NORMAL LEFT VENTRICULAR FUNCTION. EJECTION FRACTION 55-60%. NORMAL DIASTOLIC FUNCTION DOPPLER/COLOR FLOW: NORMAL COMMENTS: 1. NORMAL LEFT VENTRICULAR SYSTOLIC AND DIASTOLIC FUNCTION. EJECTION FRACTION 55-60% 2. TRACE TRICUSPID REGURGITATION. INSUFFICIENT JET TO EVALUTATE RIGHT VENTRICULAR SYSTOLIC PRESSURE. TECHNOLOGIST: MIYA DELGADILLO
== END 2023-12-26 13:57 | disposition home or self-care (01) ==
LOC: ER 07:48 → ERHOLD 08:35 → 2ND 11:00
PROVIDERS: ADMIT Internal Medicine; ATTEND Internal Medicine
DX: I48.20 Chronic atrial fibrillation, unspecified (principal); E87.6 Hypokalemia; F41.9 Anxiety disorder, unspecified; I10 Essential (primary) hypertension; Z72.0 Tobacco use
CPT/HCPCS: 93005 ×3; 93306; 85025 ×2; 81001; 80048 ×3; 36415; 83735; 85610; 82947 ×2; 80076; 84443; 84484 ×2; 83880; 71045; J3480 ×2; J3475; J1650; J1160; J7030; G0378